=== PATIENT | female | born 1995 | race Caucasian/White ===

== ENCOUNTER 2023-10-25 08:13 | Emergency (ER) | payer OTHER ==
[2023-10-25 12:13] VITALS: BP 139/81; PULSE 79; RESP 16; TEMP 99.2; BMI 25.0
== END 2023-10-25 09:36 | disposition home or self-care (01) ==
LOC: FER 08:13
DX: S99.921A Unspecified injury of right foot, initial encounter (principal); W18.40XA Slipping, tripping and stumbling without falling, unspecified, initial encounter
CPT/HCPCS: 73660-TC-FY; 99283-25